=== PATIENT | male | born 1970 | race Caucasian/White ===

== ENCOUNTER 2016-09-07 07:55 | Emergency (ER) | payer OTHER ==
[~2016-09-07] VITALS: Ht 180.3 cm; Wt 92.0 kg
[2016-09-07 07:56] VITALS: BP 119/83
[2016-09-07] MEDS ORDERED: OXYcodone/APAP 5/325MG TABLET PO ONE (08:30)
[2016-09-07] MEDS ORDERED: DIAZEPAM 5 MG TABLET PO ONE (08:30)
[2016-09-07] MEDS ORDERED: IBUPROFEN 200 MG TABLET PO ONE (08:30)
[2016-09-07] MEDS ORDERED: OXYcodone/APAP 5/325MG TABLET ONE (08:43)
[2016-09-07] MEDS ORDERED: DIAZEPAM 5 MG TABLET ONE (08:43)
[2016-09-07] MEDS ORDERED: IBUPROFEN 200 MG TABLET ONE (08:44)
== END 2016-09-07 09:08 | disposition home or self-care (01) ==
LOC: ED 08:59
DX: S33.5XXA Sprain of ligaments of lumbar spine, initial encounter (principal); M54.42 Lumbago with sciatica, left side; M54.41 Lumbago with sciatica, right side; X58.XXXA Exposure to other specified factors, initial encounter; Y93.89 Activity, other specified; Y92.89 Other specified places as the place of occurrence of the external cause; Y99.9 Unspecified external cause status
CPT/HCPCS: 72110; 99284

== ENCOUNTER → 2016-10-03 | Outpatient (CLI) | payer OTHER | END | disposition home or self-care (01) | LOC: RAD 12:32 | PROVIDERS: ATTEND Registered Nurse | DX: M51.16 Intervertebral disc disorders with radiculopathy, lumbar region (principal); M50.11 Cervical disc disorder with radiculopathy, high cervical region; M50.121 Cervical disc disorder at C4-C5 level with radiculopathy; M47.892 Other spondylosis, cervical region; M41.86 Other forms of scoliosis, lumbar region; M47.896 Other spondylosis, lumbar region; M25.78 Osteophyte, vertebrae; M48.02 Spinal stenosis, cervical region; M48.06 Spinal stenosis, lumbar region | CPT/HCPCS: 72050; 72110; 72141; 72148 ==

== ENCOUNTER → 2016-10-11 | Outpatient (CLI) | payer OTHER ==
[~2016-10-11] MED LIST: BP MED PO; GABA300C10 PO; OXYC15TA PO; SUVO20TA PO
[2016-10-11 12:20] LABS: HEMATOCRIT 41.3 % (39.2-51.8); HEMOGLOBIN 13.6 g/dL (13.7-18.0); WHITE BLOOD COUNT 5.7 x10^3/uL (3.4-10)
[2016-10-11 12:41] LABS: BLOOD UREA NITROGEN 13 mg/dL (7-18)
== END | disposition home or self-care (01) ==
LOC: STAR 11:18
PROVIDERS: ATTEND Neurological Surgery
DX: Z01.818 Encounter for other preprocedural examination (principal); M48.06 Spinal stenosis, lumbar region; R79.1 Abnormal coagulation profile
CPT/HCPCS: 36415; 71020; 80048; 81003; 85025; 85610; 85730; 93005

== ENCOUNTER 2016-10-30 05:57 | Day surgery (SDC) | payer OTHER ==
[2016-10-11 12:11] VITALS: BP 108/74
[~2016-10-30] VITALS: Ht 180.3 cm; Wt 90.6 kg
[2016-10-30] MEDS ORDERED: LACTATED RINGERS 1,000 ML IV SCH (06:42)
[2016-10-30 06:43] VITALS: BP 108/74
[2016-10-30] MEDS ORDERED: BUPIVACAINE/PF 0.5% ONE (06:57)
[2016-10-30] MEDS ORDERED: EPINEPHRINE 1 MG/ML, 1ML ONE (06:58)
[2016-10-30] MEDS ORDERED: THROMBIN 5,000 UNIT VIAL TP ONE (06:58)
[2016-10-30] MEDS ORDERED: BACITRACIN 50,000 UNIT ONE (06:58)
[2016-10-30] MEDS ORDERED: LIDOCAINE 1%, 2ML SQ PRN (07:00)
[2016-10-30] MEDS ORDERED: methylPREDNISolone SOD SUCC 125 MG/2 ML ONE (07:01)
[2016-10-30] MEDS ORDERED: HYDROmorphone 2 MG/ML, 1ML ONE ×2 (07:03→10:25)
[2016-10-30] MEDS ORDERED: FENTANYL PF 100 MCG/2ML ONE ×4 (07:03→10:24)
[2016-10-30] MEDS ORDERED: LISI1TAB5 PO (07:03)
[2016-10-30] MEDS ORDERED: MIDAZOLAM 1 MG/ML, 2ML ONE (07:03)
[2016-10-30] MEDS ORDERED: CEFAZOLIN 1,000 MG ONE (07:53)
[2016-10-30] MEDS ORDERED: ONDANSETRON 2MG/ML, 2ML ONE (07:53)
[2016-10-30] MEDS ORDERED: hydrALAzine 20 MG/ML, 1ML ONE (07:53)
[2016-10-30] MEDS ORDERED: DEXAMETHASONE 4 MG/ML, 1ML ONE (07:53)
[2016-10-30] MEDS ORDERED: ROCURONIUM 10 MG/ML ONE (07:53)
[2016-10-30] MEDS ORDERED: PROPOFOL 10 MG/ML, 20ML ONE (07:53)
[2016-10-30] MEDS ORDERED: SUCCINYLCHOLINE 20 MG/ML, 10ML ONE (07:53)
[2016-10-30] MEDS ORDERED: hydrALAzine 20 MG/ML, 1ML IV PRN (08:30)
[2016-10-30] MEDS ORDERED: METOCLOPRAMIDE 5 MG/ML, 2ML IV PRN (08:30)
[2016-10-30] MEDS ORDERED: LABETALOL 5MG/ML, 20ML IV PRN (08:30)
[2016-10-30] MEDS ORDERED: ONDANSETRON 2MG/ML, 2ML IVPush PRN (08:30)
[2016-10-30] MEDS ORDERED: OXYcodone 5 MG/5 ML ORAL.SOL UDC PO PRN (08:30)
[2016-10-30] MEDS ORDERED: ACETAMINOPHEN 325 MG TABLET PO PRN (08:30)
[2016-10-30] MEDS: FENTANYL PF 100 MCG/2ML IV PRN ×4 (10:00→10:50)
[2016-10-30] MEDS ORDERED: HYDROmorphone 1 MG/ML, 1ML ONE (10:02)
[2016-10-30] MEDS ORDERED: OXYcodone 5 MG/5 ML ORAL.SOL UDC ONE (10:02)
[2016-10-30] MEDS ORDERED: ACETAMINOPHEN 650 MG/20.3 ML UDC ONE (10:02)
[2016-10-30] MEDS: HYDROmorphone 1 MG/ML, 1ML IV PRN ×6 (10:06→11:00)
== END 2016-10-30 13:20 ==
LOC: OUT 05:57
PROVIDERS: ATTEND Neurological Surgery
DX: M48.06 Spinal stenosis, lumbar region (principal); I10 Essential (primary) hypertension; G43.909 Migraine, unspecified, not intractable, without status migrainosus
CPT/HCPCS: 63047; 63048; 72100; J0171; J0330; J0360; J0690; J1100; J1170; J2250; J2405; J2704; J2930; J3010; J3490; J7120

== ENCOUNTER 2016-11-13 00:20 | Emergency (ER) | payer OTHER ==
[~2016-11-13] VITALS: Ht 180.3 cm; Wt 92.5 kg
[~2016-11-13 00:20] MED LIST changes: +LISI1TAB5 PO
[2016-11-13 01:22] LABS: HEMATOCRIT 37.4 % (39.2-51.8); HEMOGLOBIN 12.4 g/dL (13.7-18.0); WHITE BLOOD COUNT 7.1 x10^3/uL (3.4-10)
[2016-11-13 01:30] LABS: BLOOD UREA NITROGEN 15 mg/dL (7-18)
[2016-11-13] MEDS ORDERED: morphine SULFATE 10 MG/ML, 1ML IVPush PRN (02:30)
[2016-11-13] MEDS ORDERED: OXYcodone IR 5MG TABLET PO ONE (02:30)
[2016-11-13] MEDS ORDERED: ONDANSETRON 2MG/ML, 2ML IVPush PRN (02:30)
[2016-11-13] MEDS ORDERED: DIPHENHYDRAMINE 50 MG/ML, 1ML IVPush ONE (02:30)
[2016-11-13] MEDS ORDERED: SODIUM CHLORIDE FLUSH 10ML SYR IVF ONE (02:30)
[2016-11-13] MEDS ORDERED: hydrALAzine 20 MG/ML, 1ML IVPush PRN (02:30)
[2016-11-13] MEDS ORDERED: DEXAMETHASONE 4 MG/ML, 1ML IVPush ONE (03:00)
[2016-11-13] MEDS ORDERED: DEXAMETHASONE 4 MG/ML, 1ML ONE (03:05)
[2016-11-13] MEDS ORDERED: OXYcodone IR 5MG TABLET ONE (03:13)
[2016-11-13] MEDS ORDERED: GADOBUTROL 10 MMOL/10 ML PFS ONE (06:27)
[2016-11-13] MEDS ORDERED: PANTOPRAZOLE 40 MG IV IVPush SCH (07:30)
[2016-11-13 08:08] VITALS: BP 121/91
[2016-11-13] MEDS ORDERED: PANTOPRAZOLE 40 MG IV ONE (08:28)
[2016-11-13] MEDS ORDERED: MORPHINE SULFATE 4 MG/ML, 1ML ONE (08:28)
[2016-11-13] MEDS ORDERED: LISINOPRIL 20 MG TABLET PO SCH (09:00)
[2016-11-13] MEDS ORDERED: GABAPENTIN 300 MG CAPSULE PO SCH (09:00)
[2016-11-13] MEDS ORDERED: HYDROCHLOROTHIAZIDE 12.5 MG CAPSULE PO SCH (09:00)
== END 2016-11-13 10:49 | disposition home or self-care (01) ==
LOC: ED 01:02 → UNDOADMOB 02:18 → EDIP 02:18 → INTOOBSV 02:18 → ED 10:43
DX: M96.841 Postprocedural hematoma of a musculoskeletal structure following other procedure (principal); R20.9 Unspecified disturbances of skin sensation; Z88.0 Allergy status to penicillin
CPT/HCPCS: 36415; 72158; 80048; 85025; 96374; 96375; 99285; A9585; C9113; J1100; J2270